=== PATIENT | male | born 1960 | race American Indian/Alaskan Native ===

== ENCOUNTER 2019-07-06 20:02 | Emergency (ER) | payer SELFPAY ==
[2019-07-06 21:01] LABS: Basophils % (Auto) 0.3 % (0.0-1.8); Eosinophils # (Auto) 0.1 K/mm3 (0.0-0.4); Eosinophils % (Auto) 1.9 % (0.0-4.3); Hematocrit 41.9 % (35.5-45.6); Lymphocytes # (Auto) 1.9 K/mm3 (1.2-5.4); Lymphocytes % (Auto) 46.8 % (13.4-35.0); Mean Corpuscular HGB Conc 33 % (32-34); Mean Corpuscular Volume 90 fl (84-94); Monocytes # (Auto) 0.4 K/mm3 (0.0-0.8); Monocytes % (Auto) 9.8 % (0.0-7.3); Platelet Count 228 K/mm3 (140-440); Red Blood Count 4.66 M/mm3 (3.65-5.03); Red Cell Distribution Width 14.4 % (13.2-15.2)
[2019-07-06 21:23] LABS: BUN/Creatinine Ratio 15; Blood Urea Nitrogen 17 mg/dL (9-20); Calcium 9.2 mg/dL (8.4-10.2); Hemolysis Index 27
[2019-07-06 21:43] LABS: Bilirubin,Urine NEG (Negative); Blood,Urine NEG (Negative); Color,Urine Yellow (Yellow); Mucus,Urine FEW /HPF; Protein,Urine <15 mg/dL mg/dL (Negative); Urobilinogen,Urine < 2.0 mg/dL (<2.0)
[2019-07-06 21:49] LABS: Amphetamine Screen,Urine PRESUMPTIVE NEGATIVE; Benzodiazepines Screen,Urine PRESUMPTIVE NEGATIVE; Methadone Screen,Urine PRESUMPTIVE NEGATIVE; Opiate Screen,Urine PRESUMPTIVE NEGATIVE
[2019-07-06 22:02] LABS: Cannabinoid Screen,Urine PRESUMPTIVE POSITIVE; Cocaine Screen,Urine PRESUMPTIVE POSITIVE
--- NOTE | 2019-07-07 01:47 | Emergency Department Report ---
ED Psych HPI - General Chief Complaint: Psych Stated Complaint: MH EVAL Source: patient, EMS Mode of arrival: Ambulatory - History of Present Illness Initial Comments: Patient is a 59-year-old -[place] male with a history of chronic depression and anxiety with recurrent suicidal ideations, glaucoma with complete bilateral blindness presents to the ED with complaint of worsening suicidal ideation with plan to use his belt to hung himself after he was turned away from a psychiatric facility that he had been referred to. Patient states that the facility told him that they could not accept him because he is blind and therefore unsuitable for the facility. Patient states that he was advised to return to the ED to seek alternative placement given the fact that he was still suicidal with a plan. Patient however denies chest pain, shortness of breath, dizziness, hallucinations, syncope, loss of consciousness, fever, chills, abdominal pain, low back pain, testicular pain, headache or homicidal ideations. MD Complaint: suicidal ideation, feels depressed -: Gradual, year(s) (2) Associated Psychiatric Symptoms: depression, suicidal ideation, delusions History of same: Yes (chronic) Quality: constant Improves With: none Worsens With: none Context: not taking psychiatric, significant life stressor Associated Symptoms: denies other symptoms. denies: confusion, headache, shortness of breath, nausea, vomiting, syncope, insomnia Treatments Prior to Arrival: none If Self Harm: admits thoughts of, has plan - Related Data Allergies Allergy/AdvReac Type Severity Reaction Status Date / Time No Known Allergies Allergy Unverified 07/06/19 20:20 ED Review of Systems ROS: Stated complaint: EVAL Other details as noted in HPI Constitutional: denies: chills, fever Eyes: denies: eye pain, eye discharge, vision change ENT: denies: ear pain, throat pain Respiratory: denies: cough, shortness of breath, wheezing Cardiovascular: denies: chest pain, palpitations Endocrine: no symptoms reported Gastrointestinal: denies: abdominal pain, nausea, diarrhea Genitourinary: denies: urgency, dysuria Musculoskeletal: denies: back pain, joint swelling, arthralgia Skin: denies: rash, lesions Neurological: denies: headache, weakness, paresthesias Psychiatric: anxiety, depression. denies: auditory hallucinations, visual hallucinations Hematological/Lymphatic: denies: easy bleeding, easy bruising ED Past Medical Hx - Past Medical History Previous Medical History?: Yes Hx Hypertension: Yes Hx Psychiatric Treatment: Yes (Depression) Additional medical history: Glacoma, High Cholesterol - Surgical History Past Surgical History?: Yes Additional Surgical History: Stent x 2 2015 - Social History Smoking Status: Current Every Day Smoker Substance Use Type: Alcohol, Marijuana ED Physical Exam - General Limitations: Other General appearance: alert, in no apparent distress - Head Head exam: Present: atraumatic, normocephalic - Eye Eye exam: Present: normal appearance, PERRL, EOMI - ENT ENT exam: Present: normal exam, normal orophraynx, mucous membranes moist, TM's normal bilaterally, normal external ear exam - Neck Neck exam: Present: normal inspection, full ROM - Respiratory Respiratory exam: Present: normal lung sounds bilaterally. Absent: respiratory distress, wheezes, rales, rhonchi, chest wall tenderness, accessory muscle use, decreased breath sounds - Cardiovascular Cardiovascular Exam: Present: regular rate, normal rhythm, normal heart sounds. Absent: systolic murmur, diastolic murmur, rubs, gallop - GI/Abdominal GI/Abdominal exam: Present: soft, normal bowel sounds. Absent: tenderness, guarding, hyperactive bowel sounds, organomegaly - Extremities Exam Extremities exam: Present: normal inspection, full ROM, normal capillary refill - Back Exam Back exam: Present: normal inspection, full ROM. Absent: tenderness, CVA tenderness (R), CVA tenderness (L), muscle spasm, paraspinal tenderness, vertebral tenderness - Neurological Exam Neurological exam: Present: alert, oriented X3, CN II-XII intact, normal gait, reflexes normal - Psychiatric Psychiatric exam: Present: normal mood, depressed, anxious, flat affect, suicidal ideation (hang himself with his own belt) - Skin Skin exam: Present: warm, dry, intact, normal color. Absent: rash ED Course Vital Signs 07/06/19 07/07/19 20:17 01:53 Temperature 98.5 F 98.3 F Pulse Rate 67 56 L Respiratory 18 16 Rate Blood Pressure 151/74 Blood Pressure 141/75 [Right] O2 Sat by Pulse 98 99 Oximetry ED Medical Decision Making - Lab Data Result diagrams: 07/06/19 20:41 07/06/19 20:41 - Medical Decision Making This is a 59-year-old male with a history of chronic depression, anxiety and recurrent suicidal thoughts and ideation presents to the ED with worsening suicidal ideation with a plan to use his own belt to hand himself. In the ED, patient is alert and oriented 3 is not in distress but appears anxious with a flat affect. Lab test results were reviewed and are all nonactionable. Patient was placed on 1013 and observed in the ED until mental health evaluation. Patient is a medically cleared for mental health evaluation and possible placement in a mental health institution. - Differential Diagnosis Suicidal ideation; Chronic depression and anxiety Critical care attestation.: If time is entered above; I have spent that time in minutes in the direct care of this critically ill patient, excluding procedure time. ED Disposition Clinical Impression: Depression with suicidal ideation Disposition: [id number]/TX-[id number] PSY HOSP/PSY UNIT Is pt being admited?: No Does the pt Need Aspirin: No Condition: Stable Referrals: PRIMARY CARE, [Primary Care Provider] - 3-5 Days
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
[2019-07-08] MEDS ORDERED: ARIPiprazole 5 MG TAB PO SCH (15:00)
[2019-07-08] MEDS: traZODone 50 MG TAB PO SCH (23:44)
[2019-07-09] MEDS: SERTRALINE 50 MG TAB PO SCH (10:50)
--- NOTE | 2019-07-09 14:57 | Progress Note ---
Subjective - Reason for Consult Consult date: 07/09/19 Reason for consult: psychiatric assessment - Chief Complaint Chief complaint: I interviewed the patient this morning. Medical records reviewed and patient's progress was discussed with unit staff. Nursing staff reports, pt resting quietly on recliner, resp even and non labored, no acute distress noted, no complaints of voiced, no behaviors or s/s of self harm noted, ambulates as needed to restroom without difficulty. In my interview with the patient this morning, the patient was in recliner alert and oriented 2, able to make needs known. Dressed appropriately for the occasion. The patient reports that he is suicidal but he doesn't have a plan yet. Patient also reports that he is depressed he has no energy. Patient reports that he sleeps on and off and he doesn't know why. He reports eating well the patient denies visual or auditory hallucination.the patient appeared irritable and uncooperative.The patient stated, why don't you leave me alone. Review of Symptoms: Constitutional: Negative for weight loss ENT: Negative for stridor Respiratory: Negative for cough or hemoptysis All other systems reviewed and are negative MSE Appearance: Wearing appropriate clothing. Good hygiene Behavior: anry Mood: "bad" Affect: Congruent with stated mood Thought Process: Goal directed Speech: Normal rate. Thought Content Harmfulness suicidal ideation Hallucinations: patient denies Delusions: none elicited Consciousness: alert. Cognition/Memory: normal. Insight/Judgment: Limited. RECOMMENDATIONS MEDICATIONS: start olanzapine 2.5mg dailydepression with psychotic features Risks, benefits and alternatives of medications discussed with the patient, questions answered and consent obtained from patient. PSYCHOTHERAPY: Supportive psychotherapy provided MEDICAL: Per primary team DELIRIUM PRECAUTIONS: Please re-orient patient frequently, keep lights on during the day, and minimize benzodiazepines and opiates as these medications could worsen patient's confusion. 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 LEGAL STATUS: 1013 FOLLOW-UP: Will follow Mental Status Exam - Vital signs Last Vital Signs Temp 98.0 F 07/09/19 09:23 Pulse 60 07/09/19 09:23 Resp 18 07/09/19 09:23 BP 150/87 07/09/19 09:23 Pulse Ox 100 07/09/19 09:23
[2019-07-09] MEDS: traZODone 50 MG TAB PO SCH (23:30)
[2019-07-10] MEDS: SERTRALINE 50 MG TAB PO SCH (12:02)
--- NOTE | 2019-07-10 14:58 | Progress Note ---
Subjective - Reason for Consult Consult date: 07/10/19 Reason for consult: suicidal ideation - Chief Complaint Chief complaint: Reviewed the patient's medical chart and discussed the patient's progress with the nursing staff. During my interview with the patient, he was lying down. Resting quietly. He arouses easily. He is a/o x 2. He is calm and cooperative. He is polite. He is dressed appropriately. He asks me is I "knew about his eyes." He then says "I'm legally blind." He says he's "having suicidal thoughts but they are not as intense." He says he "doesn't have a plan." He says he feels "depressed" because he "doesn't know what the outlook is." The patient denies hallucinations of any kind. He says he "slept good with trazodone." He says his appetite is "fair." He thanks me for "speaking with" him. Review of Symptoms: Constitutional: Negative for weight loss ENT: Negative for stridor Respiratory: Negative for cough or hemoptysis All other systems reviewed and are negative MSE Appearance: Wearing appropriate clothing. Behavior: calm and cooperative. Mood: "depressed" Affect: Restricted Thought Process: Goal directed Speech: Normal rate. Thought Content Harmfulness suicidal ideation Hallucinations: patient denies Delusions: none elicited Consciousness: alert. Cognition/Memory: Limited Insight/Judgment: Limited. RECOMMENDATIONS MEDICATIONS: Continue Olanzapine 2.5mg po daily Risks, benefits and alternatives of medications discussed with the patient, questions answered and consent obtained from patient. PSYCHOTHERAPY: Supportive psychotherapy provided MEDICAL: Per primary team DELIRIUM PRECAUTIONS: Please re-orient patient frequently, keep lights on during the day, and minimize benzodiazepines and opiates as these medications could worsen patient's confusion. 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 Please transfer to an acute facility once medically cleared. LEGAL STATUS: 1013 Will follow until transferred. Thank you for this consult. Mental Status Exam - Vital signs Last Vital Signs Temp 97.9 F 07/10/19 14:21 Pulse 78 07/10/19 14:21 Resp 18 07/10/19 14:21 BP 132/83 07/10/19 14:21 Pulse Ox 100 07/10/19 14:21
[2019-07-11] MEDS: SERTRALINE 50 MG TAB PO SCH (10:27)
[2019-07-11] MEDS: IBUPROFEN 800 MG TAB PO ONE ×2 (12:00→13:56)
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
[2019-07-11] MEDS: traZODone 50 MG TAB PO SCH ×2 (23:22)
[2019-07-12] MEDS: SERTRALINE 50 MG TAB PO SCH (10:04)
--- NOTE | 2019-07-12 13:28 | Progress Note ---
Subjective - Reason for Consult Consult date: 07/12/19 Reason for consult: suicidal ideation - Chief Complaint Chief complaint: Reviewed the patient's medical chart and discussed the patient's progress with the nursing staff. During my interview with the patient is awake. He is a/o x 2. He is calm and cooperative. He still expresses suicidal thoughts but says "not as intense." He says "I've been trying to talk myself out of it." He then says, "everybody has been so nice, and reassuring, and that's helping me." He denies hallucinations of any kind. The patient says he slept "good." Review of Symptoms: Constitutional: Negative for weight loss ENT: Negative for stridor Respiratory: Negative for cough or hemoptysis All other systems reviewed and are negative MSE Appearance: Wearing appropriate clothing. Behavior: calm and cooperative. Mood: "better" Affect: Restricted Thought Process: Goal directed Speech: Normal rate. Thought Content Harmfulness: suicidal ideation Hallucinations: patient denies Delusions: none elicited Consciousness: alert. Cognition/Memory: Limited Insight/Judgment: Limited. RECOMMENDATIONS MEDICATIONS: Continue medications as prescribed. Risks, benefits and alternatives of medications discussed with the patient, questions answered and consent obtained from patient. PSYCHOTHERAPY: Supportive psychotherapy provided MEDICAL: Per primary team DELIRIUM PRECAUTIONS: Please re-orient patient frequently, keep lights on during the day, and minimize benzodiazepines and opiates as these medications could worsen patient's confusion. 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 Please transfer to an acute facility once medically cleared. LEGAL STATUS: 1013 Will follow until transferred. Thank you for this consult. Mental Status Exam - Vital signs Last Vital Signs Temp 97.6 F 07/12/19 07:00 Pulse 52 L 07/12/19 07:00 Resp 20 07/12/19 07:00 BP 157/92 07/12/19 07:00 Pulse Ox 100 07/12/19 07:00
[2019-07-13] MEDS: traZODone 50 MG TAB PO SCH (00:57)
[2019-07-13 02:34] VITALS: BP 164/85
== END 2019-07-13 05:45 ==
LOC: ED 20:02 → EEVIPCON 20:02 → ED 07-13 05:45
DX: F32.9 Major depressive disorder, single episode, unspecified (principal); F41.9 Anxiety disorder, unspecified; E78.00 Pure hypercholesterolemia, unspecified; F17.200 Nicotine dependence, unspecified, uncomplicated; F12.10 Cannabis abuse, uncomplicated
CPT/HCPCS: 36415; 80048; 80307; 80320; 81001; 85025; 87086; G0480